=== PATIENT | male | born 1980 | race Caucasian/White ===

== ENCOUNTER 2016-06-25 18:41 | Emergency (ER) | payer OTHER ==
[~2016-06-25] VITALS: Ht 165.1 cm; Wt 72.7 kg
[~2016-06-25 18:41] MED LIST: HYDR-971 PO; LORA1TAB PO; PALI9TAB PO
[2016-06-25 18:55] VITALS: BP 116/82
--- NOTE | 2016-06-25 19:11 | PHYS DOC ---
General Chief Complaint: DENTAL PROBLEM Stated Complaint: DENTAL PAIN Time Seen by MD: 19:04 Source: patient Problems: History of Present Illness Initial Comments Patient here for dental pain. Patient states he was eating some dry cereal this morning and felt his right upper wisdom tooth crack. He says since that times had increasing pain over the right upper jaw. He's had no fever or chills. There is no runny nose or sore throat. There is no trouble swallowing or talking. He has done neck pain. There is no chest pain or shortness of breath. There is no nausea or vomiting and has been able tolerate by mouth food and fluids, but he says it does hurt as he eats in the right upper jaw. Patient's use of Anbesol and some [id number] pain medicine for this home without help. He notes no other increasing or decreasing factors. Patient's past medical history is remarkable health diagnosis of schizophrenia, anxiety, depression. He is on medications for this accordingly. He does not smoke cigarettes for over 2 years, but does use electronic vapes. He is nonuser of ethanol. Allergies: Coded Allergies: shellfish derived (Unverified Allergy, Unknown, 12/24/13) Past Medical History Psychosocial History: anxiety, depression, schizophrenia Social History Smoker: other Alcohol: none Review of Systems Constitutional: no symptoms reported EENTM: see HPI Respiratory: no symptoms reported Cardiovascular: no symptoms reported Gastrointestinal: no symptoms reported Psychiatric/Neurological: no symptoms reported Physical Exam General Appearance: WD/WN, no apparent distress Ear, Nose, Throat: normal ENT inspection, other Neck: full range of motion, supple, normal inspection Respiratory: lungs clear, normal breath sounds, no respiratory distress Cardiovascular: regular rate, rhythm, no edema Skin: normal color Lymphatic: no adenopathy Comments Generally this well-developed well-nourished white male in no acute distress. Vitals are as noted. Pertinent findings on physical exam shows ears and throat to be clear. Patient does have what appears to be a carious right upper third molar. There is no evidence of periapical abscess. There is minimal adjacent soft tissue swelling. He is tender to tap. There's no dysphagia or dysphonia or problems with secretions noted. Neck shows no adenopathy. There is no evidence of Silvano's. Chest is clear cardiovascular exams unremarkable. Patient awake alert oriented and cooperative. Remainder of physical exam is quickly unremarkable. Orders, Labs, Meds Old charts note prior ER visits for syncope, right shoulder pain, and pneumonia. I discussed with the patient most likely cause of his pain is related to dental discomfort. We will go and get him started on some antibiotics. Patient states that he can't take hydrocodone because causes him stomach upset. However, he says he has taken Percocet 5 mg tablets in the past without difficulty. I explained to him that unfortunately, I would like to stay away from the hole gastrointestinal problem if he does have problems with hydrocodone and find medication for different family medicine. Patient also states that tramadol does not work for him. I indicated I would be willing to try to provide him with a different pain medicine prescription. The patient later approached the nurse's station and asked to speak with me. He said that he can take the Percocet that he could take Tums at home for this. I did explain that I was going to write a prescription for Demerol as a pain tablet which should avoid a GI issue he cites with codeine related medications. He specifically denies any history of seizure disorder. I've written prescriptions for Pen-Vee K and for Demerol tablets quickly. He voiced understanding of the need to follow up with dentistry as we cannot do definitive care. He may also return to the ER sooner as needed if worsening anyway. He looks well, in no acute discomfort distress, okay for discharge home at this time. MICAH SHOOK MD Jun 25, 2016 19:11
== END 2016-06-25 19:18 | disposition home or self-care (01) ==
LOC: ER 18:41
DX: K08.89 Other specified disorders of teeth and supporting structures (principal); M54.2 Cervicalgia; F20.9 Schizophrenia, unspecified; Z87.891 Personal history of nicotine dependence; Z91.013 Allergy to seafood
CPT/HCPCS: 99283

== ENCOUNTER 2018-03-28 08:36 | Emergency (ER) | payer OTHER ==
[~2018-03-28] VITALS: Ht 165.1 cm; Wt 71.7 kg
[~2018-03-28 08:36] MED LIST changes: +HYDR-3165 PO; -HYDR-971 PO; +LORA-254 PO; -LORA1TAB PO
--- NOTE | 2018-03-28 09:38 | RAD ---
Right shoulder, 3 views, 03/28/2018: HISTORY: Shoulder pain No fracture or dislocation is identified. The periarticular soft tissues are unremarkable. IMPRESSION: No significant right shoulder abnormality is detected. Electronically signed by: Dimitris Freed MD (03/28/2018 9:34 AM) [facility]
--- NOTE | 2018-03-28 09:50 | PHYS DOC ---
Past History Past Medical History: Anxiety, Depression, Schizophrenia Past Surgical History: No Surgical History Alcohol Use: None Drug Use: None Adult General Chief Complaint Chief Complaint: UPPER EXTREMITY PAIN HPI HPI 37-year-old male presents with right shoulder pain. Patient states that he got very angry this morning and was slamming his fist against a mattress at home. On the second or third for blow as he swung up he felt a popping sensation in his right shoulder and had severe pain. The pain is a sharp cramping in the superior lateral aspect. He has some pins and needle sensation in his hand. He is unable to flex or abduct the shoulder without pain. He is able to flex his bicep and do some extension. The patient had had previous pain intermittently in this right shoulder mostly with flexion and abduction. He buses tables for a job. The pain he's had today is 9 out of 10 and he is never had pain initially like this before. He said no previous shoulder surgeries or dislocations. Review of Systems Review of Systems Constitutional: Denies fever or chills [] Eyes: Denies change in visual acuity, redness, or eye pain [] HENT: Denies nasal congestion or sore throat [] Respiratory: Denies cough or shortness of breath [] Cardiovascular: No additional information not addressed in HPI [] GI: Denies abdominal pain, nausea, vomiting, bloody stools or diarrhea [] : Denies dysuria or hematuria [] Musculoskeletal: Right shoulder pain[] Integument: Denies rash or skin lesions [] Neurologic: Denies headache, focal weakness or sensory changes [] Endocrine: Denies polyuria or polydipsia [] All other systems were reviewed and found to be within normal limits, except as documented in this note. Allergies Allergies Allergies Coded Allergies Type Severity Reaction Last Updated Verified shellfish derived Allergy Unknown 12/24/13 No Physical Exam Physical Exam Constitutional: Well developed, well nourished, no acute distress, non-toxic appearance. [] HENT: Normocephalic, atraumatic, bilateral external ears normal, oropharynx moist, no oral exudates, nose normal. [] Eyes: PERRLA, EOMI, conjunctiva normal, no discharge. [] Neck: Normal range of motion, no tenderness, supple, no stridor. [] Cardiovascular:Heart rate regular rhythm, no murmur [] Lungs & Thorax: Bilateral breath sounds clear to auscultation [] Abdomen: Bowel sounds normal, soft, no tenderness, no masses, no pulsatile masses. [] Skin: Warm, dry, no erythema, no rash. [] Back: No tenderness, no CVA tenderness. [] Extremities: Tenderness over the supraspinatus. Bicep appears to be intact. Pain with any active flexion or abduction. He does have movement against gravity. Neurovascularly intact.[] Neurologic: Alert and oriented X 3, normal motor function, normal sensory function, no focal deficits noted. [] Psychologic: Affect normal, judgement normal, mood normal. [] Current Patient Data Vital Signs Vital Signs Date Time Temp Pulse Resp B/P (MAP) Pulse Ox O2 Delivery O2 Flow Rate FiO2 03/28/18 09:27 98.1 114 97 03/28/18 09:00 22 149/81 (103) EKG EKG [] Radiology/Procedures Radiology/Procedures [] Impressions: Right shoulder, 3 views, 03/28/2018: HISTORY: Shoulder pain No fracture or dislocation is identified. The periarticular soft tissues are unremarkable. IMPRESSION: No significant right shoulder abnormality is detected. Electronically signed by: Dimitris Freed MD (03/28/2018 9:34 AM) [facility] DICTATED AND SIGNED BY: DIMITRIS FREED MD DATE: 03/28/18932 CC: SAM FAROOQ DO; BEE BECKFORD MD Course & Med Decision Making Course & Med Decision Making Pertinent Labs and Imaging studies reviewed. (See chart for details) I'm unsure if the patient has caused acute bursitis or fiesta partial tear of the supraspinatus tendon. I will treat him with a sling for comfort. I will give him one Hedrick 5/325 in the ED as well as naproxen 500 mg. I will give him a short course of Hedrick for home and advised 600 mg of ibuprofen 3 times a day for the next few days. I have also provided exercises for the patient to do after the acute pain improves. If the patient is not better in the next few days he will seek further orthopedic follow-up. He is stable for discharge at this time. [] Dragon Disclaimer Dragon Disclaimer This electronic medical record was generated, in whole or in part, using a voice recognition dictation system. Departure Departure: Impression: Primary Impression: Shoulder pain, right Disposition: HOME, SELF-CARE Condition: STABLE Referrals: BEE BECKFORD MD (PCP) Patient Instructions: Shoulder Exercises, Generic, SportsMed Scripts Hydrocodone Bit/Acetaminophen (NORCO 5-325 TABLET) 1 Each Tablet 1 TAB PO PRN Q6HRS PRN for PAIN, #10 TAB 0 Refills Prov: SAM FAROOQ DO 03/28/18 SAM FAROOQ DO Mar 28, 2018 09:50
[2018-03-28] MEDS ORDERED: HYDR-3165 PO (10:08)
[2018-03-28 10:10] VITALS: BP 125/89
[2018-03-28] MEDS: HYDROcodone/APAP 5/325MG 1 TAB TABLET PO ONE (10:15)
[2018-03-28] MEDS: NAPROXEN 500 MG TABLET PO ONE (10:15)
== END 2018-03-28 10:15 | disposition home or self-care (01) ==
LOC: ER 08:36
DX: M25.511 Pain in right shoulder (principal); G89.11 Acute pain due to trauma; F41.9 Anxiety disorder, unspecified; F20.9 Schizophrenia, unspecified; F32.9 Major depressive disorder, single episode, unspecified; Z91.013 Allergy to seafood; W22.8XXA Striking against or struck by other objects, initial encounter; Y93.89 Activity, other specified; Y92.098 Other place in other non-institutional residence as the place of occurrence of the external cause; Y99.8 Other external cause status
CPT/HCPCS: 73030; 99283